=== PATIENT | female | born 1995 ===

== ENCOUNTER 2017-05-16 23:34 | Emergency (ER) | payer BC ==
[2017-05-16 23:50] VITALS: BP 139/42; RESP 16; TEMP 98
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
[2017-05-17] MEDS ORDERED: Fluorescein 1 mg Ophthalmic Strip ONE (00:56)
[2017-05-17 02:41] VITALS: PULSE 108; O2SAT 100
== END 2017-05-17 02:40 | disposition home or self-care (01) ==
LOC: H.ER 23:34
DX: S00.81XA Abrasion of other part of head, initial encounter (principal); Y04.0XXA Assault by unarmed brawl or fight, initial encounter